=== PATIENT | female | born 1995 ===

== ENCOUNTER 2018-11-01 17:39 | Emergency (ER) | payer SELFPAY ==
[2018-11-01 17:51] VITALS: BP 115/76
--- NOTE | 2018-11-01 18:14 | UC ---
Ear Complaint HPI - HPI Summary HPI Summary: 23 y/o female presents to the urgent care c/o RT ear pain 2 days. Pt reports she had a sinus infection about 1 month ago in [place] where she lived and she was Rx antibiotics, she finished treatment 10 days ago. Now she has developed RT ear pain w/ fluid sensation and decrease hearing and pressure. Pain at touch is 4/10 and she took Ibuprofen 200mg PO this morning to alleviate symptoms. 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 Pt denies fever, cough, URI, ULLOA, dizziness, SOB, chest pain, abdominal pain, N/V/ d. - History of Current Complaint Chief Complaint: UCEar Stated Complaint: EAR PAIN Time Seen by Provider: 11/01/18 18:13 Hx Obtained From: Patient Hx Last Menstrual Period: on bc pill ?: No Onset/Duration: Gradual Onset, Lasting Days - 2 days, Still Present, Worse Since - this morning Severity Initially: Mild Severity Currently: Mild Pain Intensity: 4 Pain Scale Used: 0-10 Numeric Aggravating Factors: Other - touch Rt ear Alleviating Factors: OTC Meds - ibuprofen 200mg PO this morning Associated Signs/Symptoms: Positive: Hearing Loss - mild Related History: Other (Noted In Comments) - sinusisits abut 1 month ago - Allergies/Home Medications Allergies/Adverse Reactions: Allergies Allergy/AdvReac Type Severity Reaction Status Date / Time latex Allergy Rash Verified 11/01/18 17:51 oats Allergy Hives Verified 11/01/18 17:51 Home Medications: Home Medications Fluoxetine HCl 1 tab PO DAILY 11/01/18 [History Confirmed 11/01/18] PMH/Surg Hx/FS Hx/Imm Hx Previously Healthy: Yes - Pt denies PMHX - Surgical History Surgical History: Yes Surgery Procedure, Year, and Place: knee surgeries x2 - Family History Known Family History: Positive: Respiratory Disease - [place] - Social History Occupation: Student Lives: With Family Alcohol Use: Occasionally Substance Use Type: None Smoking Status (MU): Never Smoked Tobacco - Immunization History Vaccination Up to Date: Yes Review of Systems All Other Systems Reviewed And Are Negative: Yes Constitutional: Positive: Negative Skin: Positive: Negative Eyes: Positive: Negative ENT: Positive: Ear Ache - Rt ear pain, Other - decrease hearing Respiratory: Positive: Negative Cardiovascular: Positive: Negative Gastrointestinal: Positive: Negative Genitourinary: Positive: Negative Motor: Positive: Negative Neurovascular: Positive: Negative Musculoskeletal: Positive: Negative Neurological: Positive: Negative Psychological: Positive: Negative Is Patient Immunocompromised?: No Physical Exam - Summary Physical Exam Summary: Vital signs: reviewed General: well developed, well nourished female sitting in the examining table w/ o any apparent distress Skin: [place], warm and dry, no evidence of atopic dermatitis, psoriasis, seborrhea. HEENT: -Head: atraumatic, non tender; no scalp dermatitis. -Eyes: sclera and conjunctiva clear, PERRLA, EOMI -Ears: No pre- or postauricular lymphadenopathy or erythema; RT external ear canal with erythema and yellowish purulent discharge, pinna tenderness on palpation, Rt injected w/ erythema and yellowish discharge, LF external ear canal clear and LF TM WNL. No perforation. -Nose/Face: erythematous and edematous nasal mucosa with clear rhinorrhea, no frontal or maxillary sinus tender to palpation. -Mouth/Throat: Mucous membrane moist, posterior pharynx clear, no erythema or exudates. Neck: supple, FROM, nontender, no lymphadenopathy, no meningismus. Chest: Clear to auscultation, normal breath sounds Abd: soft, Bowel sounds active, Nontender. Back: no spinal or CVAT Neuro: A&O x4, GCS 15, no focal neuro deficits, normal behavior for age. Triage Information Reviewed: Yes Vital Signs: Initial Vital Signs Temp 98.6 F 11/01/18 17:46 Pulse 72 11/01/18 17:46 Resp 18 11/01/18 17:46 BP 115/76 11/01/18 17:46 Pulse Ox 100 11/01/18 17:46 Ear Complaint Course/Dx - Course Course Of Treatment: 23 y/o female presents to the urgent care c/o RT ear pain 2 days. Pt reports she had a sinus infection about 1 month ago in [place] where she lived and she was Rx antibiotics, she finished treatment 10 days ago. Now she has developed RT ear pain w/ fluid sensation and decrease hearing and pressure. Pain at touch is 4/10 and she took Ibuprofen 200mg PO this morning to alleviate symptoms. 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 Pt denies fever, cough, URI, ULLOA, dizziness, SOB, chest pain, abdominal pain, N/V/ d. Hx obtained. Pt w/ RT otitis externa and media on examination. Pt Rx Amoxicillin PO and ofloxacin otic drops as directed below. Pt Advised continue taking Ibuprofen PO 600mg q6-8hrs fo to alleviate otalgia. Advised If symptoms do not improve or worsen to return to the urgent care or f/u with PCP of ENT DR [facility] for further management. D/C instructions explained, Pt understood and agreed with D/C - Differential Dx/Diagnosis Differential Diagnosis/HQI/PQRI: Barotrauma, Cerumen Impaction, Otitis Externa, Otitis Media, Perforated TM, URI Provider Diagnosis: Otitis externa of right ear, Right otitis media Discharge - Sign-Out/Discharge Documenting (check all that apply): Patient Departure - d/c home All imaging exams completed and their final reports reviewed: No Studies - Discharge Plan Condition: Stable Disposition: HOME Prescriptions: Amoxicillin PO (*) [Amoxicillin 875 MG (*)] 875 mg PO BID #20 tab Ofloxacin 0.3% (Ear Drop)* [Floxin 0.3% OTIC.EDUIN (Ear Drop)] 5 drop RIGHT EAR DAILY #1 btl Patient Education Materials: Ear Infection (ED) Referrals: [facility] [place] PHYSICIAN REFERRAL [Outside] - [address] MD [Medical Doctor] - If Needed Additional Instructions: 1-Please apply ofloxacin otic antibiotic drops on your Rt ear as directed. 2- Please take the full course of the antibiotic to avoid resistance.Take yogurts w/ probiotics or Culturelle to protect your GI system 3-Take ibuprofen PO after meals for pain. 4-If symptoms do not improve or worsen please f/u with your PCP or return to the urgent care for further evaluation and treatment. - Billing Disposition and Condition Condition: STABLE Disposition: Home - Attestation Statements Provider Attestation: Per institutional requirements, I have reviewed the chart, however, I was not consulted specifically or made aware of this patient by the midlevel provider. I did not personally evaluate, interact with , or disposition this patient.
== END 2018-11-01 18:52 | disposition home or self-care (01) ==
LOC: UCEAST 17:39
DX: H66.91 Otitis media, unspecified, right ear (principal); Z91.040 Latex allergy status
CPT/HCPCS: 99202; G0463